=== PATIENT | male | born 1970 | race African-American/Black ===

== ENCOUNTER 2019-11-28 14:38 | Emergency (ER) | payer BC ==
[~2019-11-28] VITALS: Ht 182.9 cm; Wt 83.9 kg
[2019-11-28] MEDS ORDERED: ASPIRIN 81 MG CHEW TAB PO ONE (15:00)
[2019-11-28 15:14] LABS: BASOPHILS # (AUTO) 0.1 (0.0-0.1); BASOPHILS % 1.1 % (0.0-1.0); EOSINOPHILS # (AUTO) 0.3 (0.0-0.4); HEMATOCRIT 45.1 % (38.2-49.6); HEMOGLOBIN 15.6 g/dL (14.0-18.0); LYMPHOCYTES # (AUTO) 3.2 (1.0-3.2); LYMPHOCYTES % 38.3 % (18.0-39.1); MEAN CORPUSCULAR HEMOGLOBIN 31.5 pg (28-32); MEAN CORPUSCULAR HGB CONC 34.6 g/dL (31-35); MEAN CORPUSCULAR VOLUME 91.1 fL (81-99); MONOCYTES # (AUTO) 0.6 (0.2-0.8); MONOCYTES % 6.6 % (4.4-11.3); NEUTROPHILS # (AUTO) 4.1 (2.1-6.9); NEUTROPHILS % 49.6 % (38.7-80.0); PLATELET COUNT 339 x10e3/uL (140-360); RED BLOOD COUNT 4.95 x10e6/uL (4.3-5.7); RED CELL DISTRIBUTION WIDTH 12.7 % (11.7-14.4)
[2019-11-28 15:26] LABS: INR 0.93
[2019-11-28 15:27] LABS: PARTIAL THROMBOPLASTIN TIME 28.5 seconds (23.8-35.5)
--- NOTE | 2019-11-28 15:30 | Diagnostic Imaging Report ---
Examination: Single AP view of the chest. COMPARISON: None. INDICATION: Facial numbness DISCUSSION: The lungs are well inflated. No focal consolidation, pleural effusion, or pneumothorax. Cardiomediastinal contour and pulmonary vasculature are within normal limits when accounting for AP technique. No acute osseous abnormalities. IMPRESSION: 1. No acute cardiopulmonary abnormalities. Signed by: Dr. José Manuel Lucas M.D. on 11/28/2019 3:27 PM
[2019-11-28 15:32] LABS: AMPHETAMINES SCREEN,URINE NEGATIVE (NEGATIVE); BENZODIAZEPINES SCREEN,URINE NEGATIVE (NEGATIVE); PHENCYCLIDINE SCREEN,URINE NEGATIVE (NEGATIVE)
[2019-11-28 15:35] LABS: ALANINE AMINOTRANSFERASE 20 IU/L (0-55); ALBUMIN/GLOBULIN RATIO 1.2 (0.8-2.0); ALKALINE PHOSPHATASE 69 IU/L (40-150); ANION GAP 15.8 mmol/L (8-16); BLOOD UREA NITROGEN 11 mg/dL (7-26); BUN/CREATININE RATIO 12 (6-25); CALCIUM 9.3 mg/dL (8.4-10.2); CARBON DIOXIDE 24 mmol/L (22-29); CHLORIDE 103 mmol/L (98-107); CREATINE KINASE 210 IU/L (30-200); CREATININE, SERUM 0.95 mg/dL (0.72-1.25); EST GLOMERULAR FILTRATION RATE > 60 ML/MIN (60-); GLUCOSE 127 mg/dL (74-118); POTASSIUM 3.8 mmol/L (3.5-5.1); SODIUM 139 mmol/L (136-145)
--- NOTE | 2019-11-28 16:26 | Diagnostic Imaging Report ---
Examination: CT BRAIN WO CONTRAST History:Tingling and numbness in hands and feet. Face and eye droop. Comparison studies:None Technique: Axial images were obtained from the skull base to the vertex. Coronal and sagittal images reconstructed from the axial data. Dose modulation, iterative reconstruction, and/or weight based adjustment of the mA/kV was utilized to reduce the radiation dose to as low as reasonably achievable. Intravenous contrast: None Findings: Scalp: No abnormalities. Bones: No fractures, blastic or lytic lesions. Brain sulci: Appropriate for age. Ventricles: Normal in size and configuration. No hydrocephalus. Extra-axial space: No abnormalities. Parenchyma: No abnormal densities. No masses, hemorrhage, or acute or chronic cortical based vascular insults.. Sellar/suprasellar region: No abnormalities. Craniocervical junction: Patent foramen magnum. No Chiari one malformation. Incidental findings: None. Impression: No intracranial abnormalities. Signed by: Dr. Elizabeth Beltran M.D. on 11/28/2019 4:22 PM
== END 2019-11-28 17:04 | disposition home or self-care (01) ==
LOC: ER 14:38
DX: G51.0 Bell's palsy (principal)
CPT/HCPCS: 36415; 70450; 71045; 80053; 80307; 82550; 82553; 84484; 85025; 85610; 85730; 93005; 99284

== ENCOUNTER → 2019-12-02 | Outpatient (CLI) | payer BC | LOC: LAB 13:22 | PROVIDERS: ATTEND Student in an Organized Health Care Education/Training Program | DX: G61.0 Guillain-Barre syndrome (principal) | CPT/HCPCS: 83520 ==

== ENCOUNTER 2019-12-24 12:40 | Outpatient (RCR) | payer BC | END 2019-12-26 | LOC: OT 12:40 → PT 12:40 | PROVIDERS: ATTEND Student in an Organized Health Care Education/Training Program | DX: G61.0 Guillain-Barre syndrome (principal); R47.1 Dysarthria and anarthria | CPT/HCPCS: 92523 ==

== ENCOUNTER 2020-01-14 09:58 | Outpatient (RCR) | payer BC | END 2020-01-25 | LOC: PT 09:58 | PROVIDERS: ATTEND Student in an Organized Health Care Education/Training Program | DX: G61.0 Guillain-Barre syndrome (principal); R47.1 Dysarthria and anarthria | CPT/HCPCS: 97139 ==

== ENCOUNTER 2020-01-24 11:00 | Outpatient (RCR) | payer BC | END 2020-01-25 | LOC: ST 11:00 | PROVIDERS: ATTEND Student in an Organized Health Care Education/Training Program | DX: G61.0 Guillain-Barre syndrome (principal); R47.1 Dysarthria and anarthria ==

== ENCOUNTER → 2020-02-25 | Outpatient (RCR) | payer BC ==
--- NOTE | 2020-01-31 12:36 | NUR ---
Subjective: Pt alert and cooperative, no c/o pain, no family present Objective: Intermediate Goal(s) Maximize functional communication skills for ADLs in the home and for return to work. Short Term Goal(s) 1. Pt will complete home exercise program for labial, lingual, facial, and buccal muscles with independence. Pt completing at home daily. 2. Pt will use dysarthria strategies in conversation with independence. Pt verbally cued with Slow Loud Wide Mouth Emphatic Speech (SLEW) with immediate improvement in intelligibility and clarity of speech. 3. Pt will tolerate NMES to the facial muscles for 30 minutes to improve strength and coordination for speech and swallowing. Placement 4a was used to target the orbicularis betty, buccinator, and superior pharyngeal constrictor muscles. Pt tolerated 45 minutes of stimulation at 11.0 mA with cough x 0 wet vocal quality x 0 throat clear x 0. Channel 1 of the electrodes was placed on the buccal branch of the facial nerve along a straight line from the ear to the corner of the mouth and channel 2 of the electrodes was aligned horizontally just above the hyoid bone. This placement was used to improve function of the oropharyngeal sling. 4. Pt will participate in continued dx/tx. Not addressed at this session Assessment: Pt's dysarthria improves greatly with dysarthria strategy of SLEW, however 100% intelligible. Pt verbalized good conduct with NMES. Pt is unable to lip round, pucker, pt now accurately producing bilabials. Pt no linger using lingual sweep and rinse after meals to clear minimal oral residue. Pt with increased right eyebrow lifting and right naso-labial lifting, movement in bridge of nose and right eye squinting. Pt slightly lifting left eyebrow, slight improvement noted every visit. Plan: CPOC x 4 additional sessions Morelia Piña M.S. CCC-INTERIOR DESIGN PROFESSIONAL Date of Session: 01/31/20 Speech Therapy Treatment/re-assessment X 35 minutes JESSIKA NOMS Rating for Motor Speech : Level 5
--- NOTE | 2020-02-04 12:02 | NUR ---
ST Note: Pt did not keep appointment.
--- NOTE | 2020-02-07 12:03 | NUR ---
ST NOTE: Pt did not keep apt, called him, he will attend on Friday02/11/20
--- NOTE | 2020-02-11 11:16 | NUR ---
ST NOTE: Pt No Show for therapy, there are two remaining sessions scheduled, will phone pt to see if he will keep these apts, if not, pt to be d/c
== END ==
LOC: ST 01-31 11:06
PROVIDERS: ATTEND Student in an Organized Health Care Education/Training Program
DX: R47.1 Dysarthria and anarthria (principal); G61.0 Guillain-Barre syndrome

== ENCOUNTER 2020-03-17 10:54 | Outpatient (RCR) | payer BC ==
--- NOTE | 2020-03-03 12:05 | NUR ---
Subjective: Pt alert and cooperative, no c/o pain, no family present Objective: Jail Goal(s) Maximize functional communication skills for ADLs in the home and for return to work. Short Term Goal(s) 1. Pt will complete home exercise program for labial, lingual, facial, and buccal muscles with independence. Pt completing at home daily. 2. Pt will use dysarthria strategies in conversation with independence. Pt verbally cued with Slow Loud Wide Mouth Emphatic Speech (SLEW) with immediate improvement in intelligibility and clarity of speech. 3. Pt will tolerate NMES to the facial muscles for 30- 60 minutes to improve strength and coordination for speech and swallowing. Placement 4a was used to target the orbicularis betty, buccinator, and superior pharyngeal constrictor muscles. Pt tolerated 50 minutes of stimulation at 14.0 mA with cough x 0 wet vocal quality x 0 throat clear x 0. Channel 1 of the electrodes was placed on the buccal branch of the facial nerve along a straight line from the ear to the corner of the mouth and channel 2 of the electrodes was aligned horizontally just above the hyoid bone. This placement was used to improve function of the oropharyngeal sling. 4. Pt will participate in continued dx/tx. Not addressed at this session Assessment: Pt's dysarthria improves greatly with dysarthria strategy of SLEW, however 100% intelligible. Pt verbalized good conduct with NMES. Pt is unable to lip round, pucker, pt now accurately producing bilabials. Pt no linger using lingual sweep and rinse after meals to clear minimal oral residue. Pt can gargle mouthwash safely. Pt with increased right eyebrow lifting and right naso-labial lifting, movement in bridge of nose and right/left eye squinting. Pt slightly lifting left eyebrow and movement below left lip, also improved sensation along left facial nerve and continued improvement noted every visit. Plan: CPOC x 6 additional sessions Morelia Piña M.S. CCC-MANAGER FOREIGN Date of Session: 03/03/20 Speech Therapy Treatment/re-assessment X 50 minutes JESSIKA NOMS Rating for Motor Speech: Level 5 MD Signature date
--- NOTE | 2020-03-10 11:16 | NUR ---
ST NOTE: Pt no show for therapy session today, next session 03/13/20
== END 2020-03-27 ==
LOC: ST 10:54
PROVIDERS: ATTEND Student in an Organized Health Care Education/Training Program
DX: R47.1 Dysarthria and anarthria (principal)

== ENCOUNTER 2020-05-24 11:01 | Outpatient (RCR) | payer BC | END 2020-05-27 | LOC: ST 11:01 | PROVIDERS: ATTEND Student in an Organized Health Care Education/Training Program | DX: R47.1 Dysarthria and anarthria (principal) | CPT/HCPCS: 92522 ==

== ENCOUNTER → 2020-06-09 | Outpatient (CLI) | payer BC | LOC: MRI 11:11 | PROVIDERS: ATTEND Student in an Organized Health Care Education/Training Program | DX: G61.0 Guillain-Barre syndrome (principal); R29.898 Other symptoms and signs involving the musculoskeletal system | CPT/HCPCS: 72158 ==

== ENCOUNTER 2020-06-20 10:00 | Outpatient (RCR) | payer BC ==
[~2020-06-20 10:00] MED LIST: GADOBENATE DIMEGLUMINE 1 ML IV ONE
== END 2020-06-26 ==
LOC: ST 10:00
PROVIDERS: ATTEND Student in an Organized Health Care Education/Training Program
DX: R47.1 Dysarthria and anarthria (principal)
CPT/HCPCS: 92507 ×8; 92526; A9577

== ENCOUNTER 2020-07-07 10:00 | Outpatient (RCR) | payer BC, OTHER | END 2020-07-27 | LOC: ST 10:00 | PROVIDERS: ATTEND Student in an Organized Health Care Education/Training Program | DX: R47.1 Dysarthria and anarthria (principal) ==

== ENCOUNTER 2020-08-25 09:55 | Outpatient (RCR) | payer OTHER | END 2020-08-27 | LOC: ST 09:55 | PROVIDERS: ATTEND Student in an Organized Health Care Education/Training Program | DX: R47.1 Dysarthria and anarthria (principal) ==

== ENCOUNTER 2020-09-18 11:00 | Outpatient (RCR) | payer OTHER | END 2020-09-24 | LOC: ST 11:00 | PROVIDERS: ATTEND Student in an Organized Health Care Education/Training Program | DX: R47.1 Dysarthria and anarthria (principal) ==

== ENCOUNTER 2020-11-22 10:00 | Outpatient (RCR) | payer OTHER | END 2020-11-24 | LOC: ST 10:00 | PROVIDERS: ATTEND Student in an Organized Health Care Education/Training Program | DX: R47.1 Dysarthria and anarthria (principal) ==

== ENCOUNTER 2020-12-13 12:00 | Outpatient (RCR) | payer OTHER | END 2020-12-25 | LOC: ST 12:00 | PROVIDERS: ATTEND Student in an Organized Health Care Education/Training Program | DX: R47.1 Dysarthria and anarthria (principal) ==

== ENCOUNTER → 2020-12-20 | Outpatient (CLI) | payer OTHER | LOC: MRI 08:04 | PROVIDERS: ATTEND Psychiatry & Neurology Clinical Neurophysiology | DX: R47.1 Dysarthria and anarthria (principal); R29.810 Facial weakness | CPT/HCPCS: 70553; A9577 ==

== ENCOUNTER 2021-01-17 10:00 | Outpatient (RCR) | payer OTHER | END 2021-01-24 | LOC: ST 10:00 | PROVIDERS: ATTEND Student in an Organized Health Care Education/Training Program | DX: R47.1 Dysarthria and anarthria (principal) ==

== ENCOUNTER 2021-02-21 10:00 | Outpatient (RCR) | payer OTHER | END 2021-02-24 | LOC: ST 10:00 | PROVIDERS: ATTEND Student in an Organized Health Care Education/Training Program | DX: R47.1 Dysarthria and anarthria (principal); G61.0 Guillain-Barre syndrome ==

== ENCOUNTER → 2021-02-21 | Outpatient (CLI) | payer OTHER | LOC: MRI 10:56 | PROVIDERS: ATTEND Psychiatry & Neurology Clinical Neurophysiology | DX: G61.0 Guillain-Barre syndrome (principal); R29.898 Other symptoms and signs involving the musculoskeletal system | CPT/HCPCS: 72158; A9577 ==

== ENCOUNTER 2021-02-28 10:00 | Outpatient (RCR) | payer OTHER | END 2021-03-27 | LOC: ST 10:00 | PROVIDERS: ATTEND Student in an Organized Health Care Education/Training Program | DX: R47.1 Dysarthria and anarthria (principal) ==

== ENCOUNTER 2021-05-14 11:05 | Outpatient (RCR) | payer OTHER | END 2021-05-27 | LOC: ST 11:05 | PROVIDERS: ATTEND Psychiatry & Neurology Clinical Neurophysiology | DX: R47.1 Dysarthria and anarthria (principal); G61.0 Guillain-Barre syndrome | CPT/HCPCS: 92522 ==

== ENCOUNTER 2025-02-26 13:20 | Emergency (ER) | payer BC, OTHER ==
[~2025-02-26] VITALS: Ht 182.9 cm; Wt 86.2 kg
[2025-02-26] MEDS ORDERED: SODIUM CHLORIDE FLUSH 10 ML SYR IV PRN (14:15)
[2025-02-26 15:03] LABS: BASOPHILS % 1.2 % (0.0-1.0); EOSINOPHILS % 3.5 % (0.0-6.0); LYMPHOCYTES % 31.0 % (18.0-39.1); MONOCYTES % 7.4 % (4.4-11.3); NEUTROPHILS % 56.4 % (38.7-80.0); RED CELL DISTRIBUTION WIDTH 12.6 % (11.7-14.4)
[2025-02-26 15:21] LABS: EST GLOMERULAR FILTRATION RATE 89.0 ML/MIN (>=60)
[2025-02-26] MEDS: KETOROLAC TROMETHAMINE 30 MG/ML VIAL IV STA (15:23)
[2025-02-26 17:52] VITALS: PULSE 80; RESP 16; TEMP 98.2; O2SAT 100
== END 2025-02-26 17:56 | disposition home or self-care (01) ==
LOC: ER 13:48
DX: R20.0 Anesthesia of skin (principal); R07.89 Other chest pain; I31.9 Disease of pericardium, unspecified; R53.1 Weakness; G61.0 Guillain-Barre syndrome
CPT/HCPCS: 36415; 70450; 71045; 80053; 84484; 85025; 85379; 93005; 94760; 99284; J1885